=== PATIENT | female | born 1965 | race Hispanic/Latino ===

== ENCOUNTER 2023-01-11 07:33 | Observation (INO) | payer OTHER ==
[~2023-01-11 07:33] MED LIST: ACETAMINOPHEN 1000 MG/100 ML 100 ML IV ONE; AMLODIPINE BESYL5 MG PO; AMOXICILLIN500 MG PO; CLARITHROMYCIN250 MG PO; FISH OIL 1,0001 EACH PO; IBUPROFEN200 MG PO; MULTI-VITAMIN1 EACH PO; OMEPRAZOLE40 MG PO; VITAMIN B-121000 MCG PO
[2023-01-11] MEDS ORDERED: CELECOXIB 200 MG CAP ONE (07:48)
[2023-01-11] MEDS ORDERED: CEFAZOLIN SODIUM 2 GM ONE (07:49)
[2023-01-11] MEDS ORDERED: GABAPENTIN 300 MG CAP ONE (07:49)
[2023-01-11] MEDS ORDERED: LACTATED RINGER'S 1,000 ML ONE (07:49)
[2023-01-11] MEDS ORDERED: DEXAMETHASONE SOD PHOS 10 MG/1 ML VIAL ONE (07:49)
[2023-01-11] MEDS ORDERED: ROPIVACAINE 246.25 MG, EPINEPHRINE HCL 1:1000 1ML 0.5 MG, CLONIDINE HCL 0.08 MG, KETORO... INJ ONE ×5 (08:00)
[2023-01-11 08:30] LABS: BASOPHILS # (AUTO) 0.1 (0.0-0.1); BASOPHILS % 0.8 % (0.0-1.0); EOSINOPHILS # (AUTO) 0.4 (0.0-0.4); EOSINOPHILS % 4.2 % (0.0-6.0); HEMATOCRIT 35.5 % (34.2-44.1); HEMOGLOBIN 11.6 g/dL (12.0-16.0); LYMPHOCYTES # (AUTO) 3.3 (1.0-3.2); LYMPHOCYTES % 36.1 % (18.0-39.1); MEAN CORPUSCULAR HEMOGLOBIN 28.7 pg (28-32); MEAN CORPUSCULAR HGB CONC 32.7 g/dL (31-35); MEAN CORPUSCULAR VOLUME 87.9 fL (81-99); MONOCYTES # (AUTO) 0.9 (0.2-0.8); MONOCYTES % 9.3 % (4.4-11.3); NEUTROPHILS # (AUTO) 4.5 (2.1-6.9); NEUTROPHILS % 49.1 % (38.7-80.0); PLATELET COUNT 353 x10e3/uL (140-360); RED BLOOD COUNT 4.04 x10e6/uL (3.6-5.1); RED CELL DISTRIBUTION WIDTH 15.1 % (11.7-14.4); WHITE BLOOD COUNT 9.14 x10e3/uL (4.8-10.8)
[2023-01-11] MEDS ORDERED: Vancomycin IV 1,000 MG ONE (09:43)
[2023-01-11] MEDS ORDERED: SODIUM CHLORIDE 0.9% 500ML 500 ML ONE (09:43)
[2023-01-11] MEDS ORDERED: TRANEXAMIC ACID 20 ML ONE (10:54)
[2023-01-11 11:45] VITALS: TEMP 98.3
[2023-01-11] MEDS ORDERED: DIPHENHYDRAMINE HCL INJ 50 MG/ML VIAL IV PRN (11:45)
[2023-01-11] MEDS ORDERED: HYDROCODONE/APAP 7.5MG-325MG 1 EA TAB PO PRN (11:45)
[2023-01-11] MEDS ORDERED: HYDROCODONE/APAP 5MG-325MG TAB PO PRN (11:45)
[2023-01-11] MEDS ORDERED: DOCUSATE SODIUM 100 MG CAP PO PRN (11:45)
[2023-01-11] MEDS ORDERED: ONDANSETRON HCL INJ 2MG/ML 2ML 2 MG/ML VIAL IV PRN (11:45)
[2023-01-11] MEDS: FENTANYL CITRATE/PF 100MCG/2 ML INJ ONE ×2 (11:59→12:07)
[2023-01-11] MEDS: HYDROMORPHONE 1MG/1ML INJ ONE ×2 (12:20→12:37)
[2023-01-11] MEDS ORDERED: EPHEDRINE SULFATE INJ 50 MG/ML VIAL ONE (13:32)
[2023-01-11] MEDS ORDERED: SEVOFLURANE INHAL SOLN 250 ML PEN BTL ONE (13:32)
[2023-01-11] MEDS ORDERED: LIDOCAINE HCL 2% LOCAL INJ 5 ML SDV VIAL INJ ONE (13:32)
[2023-01-11] MEDS ORDERED: KETOROLAC TROMETHAMINE 30 MG/ML VIAL ONE (13:32)
[2023-01-11] MEDS ORDERED: PROPOFOL IV EMULSION 10 MG/ML 20 ML VIAL ONE (13:32)
[2023-01-11] MEDS ORDERED: ONDANSETRON HCL INJ 2MG/ML 2ML 2 MG/ML VIAL ONE (13:32)
[2023-01-11] MEDS ORDERED: DEXAMETHASONE SOD PHOS INJ 4 MG/ML SDV ONE (13:32)
[2023-01-11] MEDS ORDERED: ROPIVACAINE 0.5% 5 MG/ML 30 ML SDV ONE (13:48)
[2023-01-11] MEDS ORDERED: EPINEPHRINE HCL 1:1000 1ML 1 MG/ML AMP ONE (13:48)
[2023-01-11] MEDS ORDERED: HYDROCODONE/APAP 5MG-325MG TAB ONE (15:58)
[2023-01-11] MEDS ORDERED: SODIUM CHLORIDE 0.9% 1000ML 1,000 ML IV SCH (16:00)
[2023-01-11] MEDS ORDERED: ASPIRIN81 MG PO (16:47)
[2023-01-11] MEDS ORDERED: CELECOXIB 100 MG CAP PO SCH (17:00)
[2023-01-11 17:15] VITALS: BP 138/84; PULSE 86; RESP 17; O2SAT 98
[2023-01-11] MEDS ORDERED: ASPIRIN 325 MG TAB PO SCH (21:00)
[2023-01-12] MEDS ORDERED: ACETAMINOPHEN 1000 MG/100 ML IV PRN (11:45)
== END 2023-01-11 17:30 | disposition home health service (06) ==
LOC: OR 07:33 → PACU V 13:28
PROVIDERS: ADMIT Specialist; ATTEND Specialist
DX: M16.12 Unilateral primary osteoarthritis, left hip (principal); M17.12 Unilateral primary osteoarthritis, left knee; I10 Essential (primary) hypertension; K21.9 Gastro-esophageal reflux disease without esophagitis; B19.20 Unspecified viral hepatitis C without hepatic coma; F41.9 Anxiety disorder, unspecified; F32.A Depression, unspecified; F17.210 Nicotine dependence, cigarettes, uncomplicated; Z79.82 Long term (current) use of aspirin; Z79.1 Long term (current) use of non-steroidal anti-inflammatories (NSAID); Z79.899 Other long term (current) drug therapy
CPT/HCPCS: 27130; 36415; 72170; 85025; 86850; 86900; 97110; 97116 ×2; 97161; 97530 ×2; C1713 ×2; C1776 ×3; G0378; J0131; J0171; J0690; J1100 ×2; J1170; J1885; J2001; J2405; J2704; J2795; J3010; J3370; J7040; J7121

== ENCOUNTER → 2024-11-28 | Day surgery (SDC) | payer OTHER ==
[2024-11-22 14:17] LABS: BASOPHILS % 0.4 % (0.0-1.0); EOSINOPHILS % 4.3 % (0.0-6.0); LYMPHOCYTES % 27.6 % (18.0-39.1); MONOCYTES % 9.0 % (4.4-11.3); NEUTROPHILS % 57.9 % (38.7-80.0); RED CELL DISTRIBUTION WIDTH 14.1 % (11.7-14.4)
[2024-11-22 14:42] LABS: INR 0.87
[2024-11-22 14:51] LABS: EST GLOMERULAR FILTRATION RATE 76.0 ML/MIN (>=60)
[~2024-11-28] MED LIST changes: +ACETAMINOPHEN 1000 MG/100 ML IV PRN; +ASPIRIN 325 MG TAB PO SCH; +ASPIRIN81 MG PO; +CELECOXIB 100 MG CAP PO SCH; +DEXAMETHASONE SOD PHOS INJ 4 MG/ML SDV ONE; +DIPHENHYDRAMINE HCL INJ 50 MG/ML VIAL IV PRN; +DOCUSATE SODIUM 100 MG CAP PO PRN; +EPHEDRINE SULFATE INJ 50 MG/ML VIAL ONE; +FENTANYL CITRATE/PF 100MCG/2 ML INJ ONE; +FERROUS SULFAT325 MG PO; +GLYCOPYRROLATE INJ 0.2 MG/ML VIAL ONE; +HYDROCODONE/APAP 5MG-325MG TAB PO PRN; +LIDOCAINE HCL 2% LOCAL INJ 5 ML SDV VIAL INJ ONE; +LOSARTAN POTASS25 MG PO; +MIDAZOLAM HCL 2 MG/2 ML VIAL ONE; +OLMESARTAN-HCT1 EAC2 PO; +ONDANSETRON HCL INJ 2MG/ML 2ML 2 MG/ML VIAL IV PRN; +ONDANSETRON HCL INJ 2MG/ML 2ML 2 MG/ML VIAL ONE; +PROPOFOL IV EMULSION 10 MG/ML 20 ML VIAL ONE; +ROCURONIUM BROMIDE 1 ML IV ONE; +ROPIVACAINE 246.25 MG, EPINEPHRINE HCL 1:1000 1ML 0.5 MG, CLONIDINE HCL 0.08 MG, KETORO... INJ ONE; +SODIUM CHLORIDE 0.9% 1000ML 1,000 ML IV SCH; +SUGAMMADEX SODIUM 200 MG/2 ML VIAL IV ONE
[2024-11-28] MEDS: LACTATED RINGER'S 1,000 ML ONE (08:31)
[2024-11-28] MEDS: DEXAMETHASONE SOD PHOS 10 MG/1 ML VIAL ONE (08:31)
[2024-11-28] MEDS: CELECOXIB 200 MG CAP ONE (08:31)
[2024-11-28] MEDS: CEFAZOLIN SODIUM 2 GM ONE (08:31)
[2024-11-28] MEDS: GABAPENTIN 300 MG CAP ONE (08:31)
[2024-11-28] MEDS: HYDROMORPHONE 1MG/1ML INJ ONE (10:40)
[2024-11-28] MEDS: HYDROCODONE/APAP 7.5MG-325MG 1 EA TAB PO PRN (11:08)
[2024-11-28 11:15] VITALS: TEMP 97.5
[2024-11-28] MEDS: HYDROCODONE/APAP 7.5MG-325MG 1 EA TAB ONE (12:20)
[2024-11-28 12:30] VITALS: BP 126/72; PULSE 64; RESP 18; O2SAT 98
== END | disposition home health service (06) ==
LOC: OR 05:43
PROVIDERS: ATTEND Specialist
DX: M16.11 Unilateral primary osteoarthritis, right hip (principal); I10 Essential (primary) hypertension; F17.210 Nicotine dependence, cigarettes, uncomplicated; Z79.899 Other long term (current) drug therapy; Z96.652 Presence of left artificial knee joint; Z96.642 Presence of left artificial hip joint; Z01.810 Encounter for preprocedural cardiovascular examination; Z01.812 Encounter for preprocedural laboratory examination
CPT/HCPCS: 27130; 36415; 72170; 80053; 85025; 85610; 85730; 86850; 86900; 93005; 97110; 97116; 97161; 97530; C1713 ×2; C1776 ×3; J0131; J0169; J1100 ×2; J1171; J1885; J2003; J2250; J2405; J2704; J2795; J3010; J7121